=== PATIENT | female | born 1985 | race Caucasian/White ===

== ENCOUNTER 2016-05-06 04:45 | Inpatient (IN) | payer OTHER ==
[~2016-05-06] VITALS: Ht 152.4 cm; Wt 80.7 kg
[2016-05-06] MEDS ORDERED: VALACYCLOVIR500 M1 PO (08:56)
[2016-05-06] MEDS ORDERED: PRENATAL TABLE1 EAC2 PO (08:56)
[2016-05-06 09:24] LABS: ABSOLUTE BASOPHIL COUNT 0 /CUMM (0.0-0.2); ABSOLUTE EOSINOPHIL COUNT 0.1 /CUMM (0.0-0.7); ABSOLUTE GRANULOCYTE CT 11.5 /CUMM (1.4-6.5); ABSOLUTE MONOCYTE COUNT 0.8 /CUMM (0.10-0.60); BASOPHIL % 0.3 % (0.0-2.0); EOSINOPHIL % 0.4 % (0-5); GRANULOCYTE % 80.1 % (42.2-75.2); HEMATOCRIT 35.8 % (37-47); MEAN CORPUSCULAR HGB 29.7 PG (27.0-31.0); MEAN CORPUSCULAR HGB CONC 33.6 G/DL (33.0-37.0); MEAN CORPUSCULAR VOLUME 88.4 FL (81.0-99.0); MEAN PLATELET VOLUME 8.1 FL (7.4-10.4); PLATELET COUNT 249 /CUMM (130-400); RBC DISTRIBUTION WIDTH 15.7 % (11.5-14.5); RED BLOOD CELL CT 4.05 /CUMM (4.20-5.40); WHITE BLOOD CELL COUNT 14.4 /CUMM (4.8-10.8)
--- NOTE | 2016-05-06 09:41 | History & Physical ---
General Information and HPI MD Statement: I have seen and personally examined GRADY ZENDEJAS and documented this H&P. The patient is a 30 year old female at [40] weeks and [5] days gestation who presented with a chief complaint of [LABOR]. Source of Information: patient Exam Limitations: no limitations History of Present Illness: 30 YEAR OLD @ 40+5 WEEKS PRESENTS WITH LABOR PAIN. WAS SEEN ON CBC 2 DAYS PRIOR FOR R/O ROM. PATIENT HAD A NEG AMNISURE AND NEG STERILE SPEC EXAM (NEG FERN/POOL). CERVIX AT THAT TIME WAS 1-2CM. SHE NOW PRESENTS WITH WORSENING CONTRACTIONS OVERNIGHT. UPON ARRIVAL WAS 3-4 CM PER NURSING. ON MY EXAM AT 0800 SHE WAS 5CM/90/-1 SHE RELAYS H/O PERSISTENT DISCHARGE. AMNISURE ON ADMISSION NEG. UNREMARKABLE EXCEPT FOR PT HAS A REMOTE H/O HSV. SHE DENIES PRODROMAL SX AND HAS BEEN ON VALTREX. SHE HAS A REMOTE H/O ANXIETY BUT NO ISSUES THROUGHOUT . 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 EENTM: Reports: no symptoms. Cardiovascular: Reports: no symptoms. Respiratory: Reports: no symptoms. GI: Reports: no symptoms. Genitourinary: Reports: no symptoms. Musculoskeletal: Reports: no symptoms. Skin: Reports: no symptoms. Neurological/Psychological: Reports: no symptoms. Hematologic/Endocrine: Reports: no symptoms. Immunologic/Allergic: Reports: no symptoms. Exam & Diagnostic Data Last 24 Hrs of Vital Signs/I&O Intake & Output 05/06 1600 05/06 0800 05/06 0000 Intake Total Output Total Balance Patient 178 lb Weight Obstetric Exam Wgt Gained During : 40 Pelvimetry: N/A Dilation (cm): 5 Effacement (%): 90 Station: -1 Membranes: intact Fluid: unknown Fundal Height (cm): 40 Multiple Gestation? No Contractions: Q2MIN #1 - FHR Baseline: 130 Category: 1 Estimated Weight: 8LBS Presentation: VTX Patient for Induction? No Physical Exam General Appearance Alert, Oriented X3, Cooperative, No Acute Distress Skin No Rashes, No Breakdown, No Significant Lesion HEENT Atraumatic, PERRLA, EOMI Cardiovascular Regular Rate Lungs Clear to Auscultation, Normal Air Movement Abdomen Normal Bowel Sounds, Soft, No Tenderness, No Hepatospenomegaly, No Masses, GRAVID Neurological Normal Gait, Normal Speech, Strength at 5/5 X4 Ext Extremities No Clubbing, No Cyanosis Reproductive (FEMALE) Normal female genitalia Labs Blood Type & Rh: A pos Antibody Screen: Neg Hct/Hgb & Platelets #1: 12.4 37.2 307 Hct/Hgb & Platelets #2: 11.3 35.2 302. Rubella: imm VDRL #1: Neg VDRL #2: Neg HbsAg: Neg HIV #1: Neg HIV #2 Neg 1 Hr P Group B Strep: Neg Initial Ultrasound: IUP at 12 weeks Anatomy Ultrasound: 20.2 cisterna magna upper limits of normal, f/u stable anterior placenta, 3vc Genetic Testing: neg CF, neg Hgb elec, neg firs trimester screen, declines MSAFP Last 24 Hrs of Labs/Shawn: Laboratory Tests 05/06/16 0835: CBC w Diff Pending, WBC Pending, RBC Pending, Hgb Pending, Hct Pending, MCV Pending, MCH Pending, RDW Pending, Plt Count Pending, MPV Pending, PUBS MCHC Pending, Methadone Screen Pending, Barbiturate Screen Pending, Ur Phencyclidine Scrn Pending, Amphetamines Screen Pending, U Benzodiazepines Scrn Pending, Urine Cocaine Screen Pending, Urine Cannabis Screen Pending, Urine Color Pending, Urine Clarity Pending, Urine pH Pending, Ur Specific [place] Pending, Urine Protein Pending, Urine Ketones Pending, Urine Nitrite Pending, Urine Bilirubin Pending, Urine Urobilinogen Pending, Ur Leukocyte Esterase Pending, Ur Microscopic SEDIMENT EXAMINED, Urine RBC Pending, Urine Hemoglobin Pending, Urine Glucose Pending Assessment/Plan Assessment/Plan: 30 year old @ at 40+5 weeks. Active labor. Uncomplicated hx. FHR tracing reassuring. Anticipate . epidural/pitocin/AROM pr. As Ranked By This Provider Problem List: 1. Core Measures/Miscellaneous Moore Catheter Date In: 05/06/16 Venous Thromboembolism VTE Risk Factors: / VTE Contraindications: No Contraindications VTE Prophylaxis Ordered Inpt: Early Ambulation VTE Diagnosis: No Beta Edna Is Beta Edna a Home Med? No Antibiotics Is Patient on Antibiotics? No Attending MD Review Statement Attending Statement Attending MD Statement: examined this patient, discussed with family, discussed w/nursing
--- NOTE | 2016-05-06 10:56 | PN- OBGYN ---
Surgical Brief Attending Note Brief Attending Note: Doing well. No complaints. Tolerating pain. Was just in the jacuzzi. VSSAF FHR: 130s, +cat 1 toco: q 2-3 min cvx: 5/90/-1, BBOW AROM thin [facility] Laboratory Tests 05/06/16 0835: CBC w Diff NO MAN DIFF REQ, RBC 4.05 L, MCV 88.4, MCH 29.7, RDW 15.7 H, MPV 8.1, Gran % 80.1 H, Lymphocytes % 13.6 L, Monocytes % 5.6, Eosinophils % 0.4, Basophils % 0.3, Absolute Granulocytes 11.5 H, Absolute Lymphocytes 2.0, Absolute Monocytes 0.8 H, Absolute Eosinophils 0.1, Absolute Basophils 0, PUBS MCHC 33.6, Urine Opiates Screen < 100.00, Methadone Screen < 40, Barbiturate Screen < 60, Ur Phencyclidine Scrn < 6.00, Amphetamines Screen < 100, U Benzodiazepines Scrn < 85, Urine Cocaine Screen < 50, Urine Cannabis Screen 51.10 H, Urine Color YEL, Urine Clarity CLEAR, Urine pH 6.5, Ur Specific [place] 1.010, Urine Protein NEG, Urine Ketones NEG, Urine Nitrite NEG, Urine Bilirubin NEG, Urine Urobilinogen 0.2, Ur Leukocyte Esterase MOD H, Ur Microscopic SEDIMENT EXAMINED, Urine RBC 1-3, Urine WBC 10-15 H, Ur Epithelial Cells MOD H, Urine Hemoglobin MOD H, Urine Glucose NEG a/p 40+5. Active labor. no cervical change. Amniotomy performed. Thin [facility]. peds notified. anticipate .
--- NOTE | 2016-05-06 13:23 | PN- OBGYN ---
Surgical Brief Attending Note Brief Attending Note: COMFORTABLE WITH EPIDURAL. NO COMPLAINTS. VSSAF [id number] CAT 1 TOCO Q3-5MIN CVX 5-6/80/-1 A/P 40+5. ACTIVE LABOR. WILL REASSES IN 1-2 HOURS, IF NO SIGNIFICANT CERVICAL CHANGE OR IF LESS FREQUENCY OF CONTACTIONS, CONSIDER PITOCIN.
--- NOTE | 2016-05-06 15:50 | PN- OBGYN ---
Surgical Brief Attending Note Brief Attending Note: Pt comfortable . no complaints. FHTs:130s-140s cat 1 toco: q3-4 cvx: 6/80/-1 Laboratory Tests 05/06/16 0835: CBC w Diff NO MAN DIFF REQ, RBC 4.05 L, MCV 88.4, MCH 29.7, RDW 15.7 H, MPV 8.1, Gran % 80.1 H, Lymphocytes % 13.6 L, Monocytes % 5.6, Eosinophils % 0.4, Basophils % 0.3, Absolute Granulocytes 11.5 H, Absolute Lymphocytes 2.0, Absolute Monocytes 0.8 H, Absolute Eosinophils 0.1, Absolute Basophils 0, PUBS MCHC 33.6, Urine Opiates Screen < 100.00, Methadone Screen < 40, Barbiturate Screen < 60, Ur Phencyclidine Scrn < 6.00, Amphetamines Screen < 100, U Benzodiazepines Scrn < 85, Urine Cocaine Screen < 50, Urine Cannabis Screen 51.10 H, Urine Color YEL, Urine Clarity CLEAR, Urine pH 6.5, Ur Specific [place] 1.010, Urine Protein NEG, Urine Ketones NEG, Urine Nitrite NEG, Urine Bilirubin NEG, Urine Urobilinogen 0.2, Ur Leukocyte Esterase MOD H, Ur Microscopic SEDIMENT EXAMINED, Urine RBC 1-3, Urine WBC 10-15 H, Ur Epithelial Cells MOD H, Urine Hemoglobin MOD H, Urine Glucose NEG Microbiology 05/06 1350 URINE ROUT: Urine Culture - RECD a/p 30 year old @ 40+5. active labor. no significant cervical change despite some augmentation. IUPC placed which confirmed about 150mVUs or less. will continue augmentation. Pt informed +THC on Utox performed for remote hx. Pt relays intermittent use during . "last use the other day". She however desired to nurse. Discussed perhaps pumping and dumping until neg UTOx so that can still stimulate breast milk. Discussed use of formula. She states remorse. Pt informed that if +, DCF is notified. She states that would like to do the best thing for her baby and will defer from THC in future.
--- NOTE | 2016-05-06 19:41 | PN- OBGYN ---
Surgical Brief Attending Note Brief Attending Note: PT RECENTLY REBOLUSES BY ANESTHESIA. HAS RECTAL PRESSURE. EXAMINED BY RN 2 HOURS PRIOR AND WAS 6 CM. PT HAD RECEIVED UP TO 8MU/MIN AND ADEQUATE LABOR X 3 HOURS. FHR TRACING REASSURING. NOW TEMP OF 100.5. ON MY EXAM, CVX 6CM/90/-1 STATION. I RECOMMENDED DELIVERY FOR ARREST OF DILATION/ARREST OF DESCENT. PT COUNSELED ON INTRAOPERATIVE/POSTOPERATIVE EXPECTATIONS . RISK OF PROCEDURE REVIEWED INCLUDING RISK OF BLEEDING, INFECTION, INJURY TO OTHER ORGANS, TTN, INJURY TO FETUS, NEED FOR ADDITIONAL PROCEDURES SHOULD COMPLICATION OCCUR. QUESTIONS ANSWERED AND DESIRES TO PROCEED.
--- NOTE | 2016-05-06 19:55 | Operative Report ---
See Addendum Operative/Inv Procedure Report Surgery Date: 05/06/16 Name of Procedure: PRIMARY LTCS Pre-Operative Diagnosis: ARREST OF DILATION/DESCENT AT 6CM THIN MEC REMOTE H/O HSV Post-Operative Diagnosis: SAME Estimated Blood Loss: 700NL Surgeon/Senior Technical Specialist: MARYJO BRANDON DO ASST: COLUMBA FRANKLIN MD Anesthesia: block (EPIDURAL) IV Fluids: 800 mL crystalloid Urine Output: 300 mL Drains: WAY CATHETER Specimens: PLACENTA Complications: NONE Condition: GOOD Operative Indication: This patient is a 30-year-old 1 para 0 who presented early in the morning on 05/06/2016. She presented in early labor and was initially 1 cm and admitted upon cervical change to 3 cm. Operative/Procedure Note Note: PATIENT ADMINSTERED EPIDURAL BOLUS PRIOR TO ENTERING THE OR. THE PATIENT WAS TAKEN TO THE OPERATING ROOM WHERE ANESTHESIA WAS FURTHER OBTAINED. PATIENT WAS THEN PREPARED AND DRAPED IN THE USUAL STERILE FASHION. PFANNENSTIEL SKIN INCISION WAS MADE WITH SCALPEL AND CARRIED DOWN TO THE FASCIA WITH THE SCALPEL. FASCIA WAS INCISED AND EXTENDED BILATERALLY WITH BLUNT DISSECTION. RECTUS MUSCLES WERE DISSECTED OFF WITH BLUNT DISSECTION . PERITONEUM WAS IDENTIFIED AND ENTERED. INCISION WAS EXTENDED SUPERIORLY AND INFERIORLY WITH GOOD VISUALIZATION OF THE BLADDER. BLADDER BLADE WAS INSERTED. VESICOUTERINE PERITONEUM WAS IDENTIFIED AND ENTERED SHARPLY. INCISION EXTENDED AND BLADDER FLAP CREATED. BLADDER BLADE REINSERTED. LOWER UTERINE SEGMENT WAS INCISED IN A TRANSVERSE FASHION. HEAD SHOULDERS AND BODY DELIVERED WITHOUT DIFFICULTY. CORD CLAMPED AND CUT AND INFANT HANDED OFF TO PEDIATRICS. PLACENTA DELIVERED WITH GENTLE TRACTION. Uterus was then exteriorized and cleared of all clots and debris. Mild atony of the lower uterine segment was encountered. Good uterine tone was obtained with 10 units of Pitocin administered intrauterine an additional dose of Methergine 1 was ordered. Uterine incision was reapproximated with 0 Vicryl running locking fashion. A second imbricating suture of 0 Vicryl was placed. Good hemostasis was noted. Uterus was inspected and noted to be within normal limits. She had normal-appearing bilateral ovaries and bilateral ovaries. Uterus was irrigated posteriorly and the uterus was then replaced back into the abdomen. Gutters were cleared of all clots and debris and uterine incision was reevaluated and noted to be hemostatic. Peritoneum was reapproximated. Rectus muscles were reapproximated inferiorly. Rectus muscles were noted to be hemostatic. Fascia was repassed with 0 Vicryl in a running fashion. The tissues were irrigated and reapproximated 3-0 Polysorb. Skin was closed with 4 0 Biosyn on a Ramón needle. All sponge, lap counts and needle counts were correct 2 the patient was taken to recovery area in stable condition. Findings: 9 lbs. 12 oz. male infant with scores of 9, 9, 9 delivered at 2013 on 05.06.2016. Normal-appearing uterus, bilateral ovaries, bilateral fallopian tubes, thin meconium. [facility]
[2016-05-07 09:20] LABS: ABSOLUTE BASOPHIL COUNT 0 /CUMM (0.0-0.2); ABSOLUTE EOSINOPHIL COUNT 0 /CUMM (0.0-0.7); ABSOLUTE LYMPH COUNT 1.3 /CUMM (1.2-3.4); BASOPHIL % 0.1 % (0.0-2.0); EOSINOPHIL % 0.1 % (0-5); GRANULOCYTE % 87.2 % (42.2-75.2); HEMATOCRIT 31.2 % (37-47); MEAN CORPUSCULAR HGB 30.1 PG (27.0-31.0); MEAN CORPUSCULAR HGB CONC 34.1 G/DL (33.0-37.0); MEAN CORPUSCULAR VOLUME 88.2 FL (81.0-99.0); MEAN PLATELET VOLUME 7.9 FL (7.4-10.4); PLATELET COUNT 238 /CUMM (130-400); RBC DISTRIBUTION WIDTH 15.8 % (11.5-14.5); RED BLOOD CELL CT 3.54 /CUMM (4.20-5.40); WHITE BLOOD CELL COUNT 18.4 /CUMM (4.8-10.8)
--- NOTE | 2016-05-07 11:25 | PN- OBGYN ---
Surgical Brief Attending Note Brief Attending Note: POD#1 pt is sitting in chair, no complaints, tolerate diet, vuong in place, clear urine, flatus(-) PE: VSS CV RRR lungs CTA b/l Abdomen: soft, nontender, uterus firm, fundus below umbilicus. incision D/C/I Ext: DCT (-) A/P: 30yo, s/p PLTCS, POD#1 1. encourage ambulation 2. will d/c vuong , void trial 3. pain management as needed 4.RT PP care
--- NOTE | 2016-05-08 11:39 | PN- Post Delivery/GYN ---
Subjective Subjective: feeling well passing gas Review of Systems Constitutional: Reports: no symptoms. Denies: chills, fever. EENTM: Denies: blurred vision, double vision, visual changes. Cardiovascular: Denies: chest pain. Respiratory: Denies: short of breath. Gastrointestinal: Denies: diarrhea, nausea, vomiting. Neurological/Psychological: Denies: anxiety, depressed. Objective Last 24 Hrs of Vital Signs/I&O vss Physical Exam General Appearance Alert, Oriented X3, Cooperative, No Acute Distress Cardiovascular Regular Rate Lungs Clear to Auscultation Abdomen Soft Neurological Normal Tone Pelvic (FEMALE) lochia serosanganous Current Medications: Current Medications Sig/Zeinab Start time Last Medication Dose Route Stop Time Status Admin Acetaminophen 1,000 MG .STK-MED ONE 05/07 1523 DC IV 05/07 1524 Acetaminophen 1,000 MG Q6P PRN 05/07 0100 05/07 N/A 1 UNIT IV 0100 Acetaminophen 650 MG Q4P PRN 05/06 2145 AC PO Butorphanol Tartrate 1 MG Q4P PRN 05/06 0830 AC IV Butorphanol Tartrate 1 MG Q4P PRN 05/06 0830 AC IM Diphenhydramine HCl 25 MG Q6P PRN 05/07 0100 AC IV Docusate Sodium 100 MG BID 05/07 1000 AC 05/08 PO 0750 Hydroxyzine HCl 50 MG AT BEDTIME NEED.. 05/06 2145 AC PO Ibuprofen 800 MG .STK-MED ONE 05/07 2239 DC PO 05/07 2240 Ibuprofen 800 MG .STK-MED ONE 05/07 1548 DC PO 05/07 1549 Ibuprofen 800 MG Q6P PRN 05/06 2145 AC 05/08 PO 0750 Ketorolac 30 MG Q6H 05/06 2145 DC 05/07 Tromethamine IV 05/07 1546 0953 Lactated Ringer's 1,000 ML Q8H 05/06 1945 DC 05/07 IV 0308 Lactated Ringer's 1,000 ML Q8H 05/06 0830 DC 05/06 IV 1746 Metoclopramide HCl 10 MG Q6P PRN 05/07 0100 AC IV Naloxone HCl 0.2 MG DAILY NEEDED PRN 05/07 0100 AC IV Oxycodone/ 1 TAB Q4P PRN 05/07 1345 AC 05/08 Acetaminophen PO 0812 Oxycodone/ 2 TAB Q4P PRN 05/07 1345 AC Acetaminophen PO Oxycodone/ 1 TAB Q3P PRN 05/06 2145 DC 05/07 Acetaminophen PO 1326 Oxytocin 30 UNITS PER PROTOCL 05/06 1345 AC 05/06 Lactated Ringer's 500 ML IV 1359 Senna 374 MG AT BEDTIME NEED.. 05/06 2145 DC PO 05/07 2146 Simethicone 80 MG Q6 PRN 05/07 1202 AC PO Simethicone 80 MG Q6 05/07 0600 DC 05/07 PO 0659 Assessment/Plan Assessment/Plan POD #2 vss afebrile plan ambulate Problem List: 1. Attending MD Review Statement Attending Statement Attending MD Statement: examined this patient, discussed with family, discussed with nursing
[2016-05-09] MEDS ORDERED: PERCOCET 5-3251 EACH PO (09:16)
[2016-05-09] MEDS ORDERED: IBUPROFEN800 M1 PO (09:16)
--- NOTE | 2016-05-09 11:59 | PN- Post Delivery/GYN ---
Subjective Subjective: Patient is ready for discharge home today Review of Systems: Currently negative cardiac pulmonary GI complaints Objective Last 24 Hrs of Vital Signs/I&O Temp 98.8 pulse 82 respirations 16 blood pressure 122/78 pulse ox 98% room air Physical Exam General Appearance Alert, Oriented X3, Cooperative, No Acute Distress Skin No Rashes, No Breakdown, No Significant Lesion Cardiovascular Regular Rate Lungs Normal Air Movement Abdomen Normal Bowel Sounds, Soft, No Tenderness, No Hepatospenomegaly, fundus is firm at the pubic fingerbreadths below the umbilicus nontender incision itself is clean dry and intact without erythema or induration or drainage Neurological Normal Gait, Normal Speech Extremities No Clubbing, No Cyanosis, No Tenderness/Swelling Reproductive (FEMALE) Normal female genitalia, average lochia Current Medications: Current Medications Sig/Zeinab Start time Last Medication Dose Route Stop Time Status Admin Acetaminophen 1,000 MG Q6P PRN 05/07 0100 AC 05/07 N/A 1 UNIT IV 0100 Acetaminophen 650 MG Q4P PRN 05/06 2145 AC PO Butorphanol Tartrate 1 MG Q4P PRN 05/06 0830 AC IV Butorphanol Tartrate 1 MG Q4P PRN 05/06 0830 AC IM Diphenhydramine HCl 25 MG Q6P PRN 05/07 0100 AC IV Docusate Sodium 100 MG .STK-MED ONE 05/08 2100 DC PO 05/08 2101 Docusate Sodium 100 MG BID 05/07 1000 AC 05/09 PO 0837 Hydroxyzine HCl 50 MG AT BEDTIME NEED.. 05/06 214 AC PO Ibuprofen 800 MG .STK-MED ONE 05/09 0342 DC PO 05/09 0343 Ibuprofen 800 MG .STK-MED ONE 05/08 2115 DC PO 05/08 2116 Ibuprofen 800 MG .STK-MED ONE 05/08 1401 DC PO 05/08 1402 Ibuprofen 800 MG Q6P PRN 05/06 2145 AC 05/09 PO 0953 Metoclopramide HCl 10 MG Q6P PRN 05/07 0100 AC IV Naloxone HCl 0.2 MG DAILY NEEDED PRN 05/07 0100 AC IV Oxycodone/ 1 TAB Q4P PRN 05/07 1345 AC 05/09 Acetaminophen PO 0837 Oxycodone/ 2 TAB Q4P PRN 05/07 1345 AC Acetaminophen PO Oxytocin 30 UNITS PER PROTOCL 05/06 1345 AC 05/06 Lactated Ringer's 500 ML IV 1359 Simethicone 80 MG Q6 PRN 05/07 1202 AC PO Assessment/Plan Assessment/Plan Stable postop day #3. Patient is doing well from her delivery. Her pain is controlled with oral pain medications, she's remained afebrile, she's had full return of GI function. Patient will be discharged home today Problem List: 1. Arrest of dilation, delivered, current hospitalization 2. delivery delivered 3. Macrosomia Attending MD Review Statement Attending Statement Attending MD Statement: examined this patient, discussed with family, discussed with nursing Attending Assessment/Plan: Mechelle Cho MD
--- NOTE | 2016-05-15 11:23 | Discharge Summary ---
Visit Information Visit Dates Admission Date: 05/06/16 Discharge Date: 05/09/16 Hospital Course Course Attending Physician: MARYJO BRANDON DO Primary Care Physician: PATIENT HAS NO PRIMARY CARE DR Hospital Course: This patient is a 30-year-old 1 para 0 at 40 weeks and 5 days who presented early in the morning on 05/06/2016. Upon initial evaluation she was in early labor 1 cm. After period of observation Shan sure cervix to 3 cm and was admitted. Upon my assessment she was found to be 5 cm 90% effaced -1 station at 8:00 in the morning. She contracted throughout the day and when later examined she was still found to be 5-6 cm at that time amniotomy was performed and thin meconium was noted. Pediatrics was notified. After period of observation she continued to be 5-6 cm and Pitocin was ordered. She was reevaluated and no cervical change was further noted at that time. IUPC was ordered and inadequate labor was noted. Pitocin was managed accordingly in order to obtain adequate labor. After 3 hours of adequate labor she did not demonstrate any cervical change she remained 5-6 cm. The patient was counseled on delivery for arrest of dilation at 6 cm. Additionally fetus did not descend past -1 station. She was counseled on risks, benefits, alternatives of delivery including risk of bleeding, infection, injury to the organs or fetus, need for additional procedure should competition occur. She stated verbal understanding of all the above and desired to proceed. Her surgery was uncomplicated. She delivered a 9 lbs. 12 oz. male infant with scores of 9 , 9, 9 at 2014 on the retrieval 2016. Her uterus was slightly atonic after delivery and Methergine 1 was ordered. Good tone and good hemostasis was noted. Her postoperative course was similarly uncomplicated. She was discharged home on postoperative day #3 in good condition. She was a bleeding, voiding, tolerating pain and by mouth. Her lochia was appropriate. Discharge precautions were advised. Complications: None Allergies: Coded Allergies: No Known Allergies (05/06/16) Significant Procedures: Primary low transverse section Disposition Summary Disposition Principal Diagnosis: Term , delivered Additional Diagnosis: Arrest of dilation, arrest of descent, macrosomic infant Discharge Disposition: home or self care Discharge Instructions General Discharge Information Code Status: Full Code Patient's Diet: Regular Patient's Activity: Pelvic rest and no heavy lifting Follow-Up Instructions/Appts: [facility] 2 weeks and 6 weeks . Follow-up for severe persistent pain, fever greater than 101, heavy vaginal bleeding Medications at Discharge Discharge Medications: Stop taking the following medications: Valacyclovir HCl (Valacyclovir) 500 MG TABLET ORAL DAILY Continue taking these medications: Vit No.130/Iron/FA ( Tablet) 27 MG IRON-800 MCG TABLET 1 Tablet ORAL DAILY Start taking the following new medications: Ibuprofen (Ibuprofen) 800 MG TABLET 800 Milligram ORAL EVERY SIX HOURS NEEDED as needed for UTERINE CRAMPING Qty = 60 Refills = 6 Comments: Last Taken:05/09/16 Time:0957 Oxycodone HCl/Acetaminophen (Percocet 5-325 MG Tablet) 5 MG-325 MG TABLET 1-2 Tablet ORAL EVERY 4 HOURS NEEDED as needed for PAIN SCALE 4- 10 Qty = 30 No Refills Comments: Last Taken: 05/09/16 Time: 0837 Copies To: MARYJO BRANDON DO, MD Review Statement Documenting Attending: MARYJO BRANDON DO
== END 2016-05-09 13:00 | DRG 540 ==
LOC: CBCO 04:45 → GNO 08:23
PROVIDERS: ADMIT Obstetrics & Gynecology
PROC: 10D00Z1 Extraction of Products of Conception, Low, Open Approach (ICD-10-PCS; principal; 2016-05-06)
DX: O62.1 Secondary uterine inertia (principal); Z3A.40 40 weeks gestation of pregnancy; Z37.0 Single live birth; O36.63X0 Maternal care for excessive fetal growth, third trimester, not applicable or unspecified
CPT/HCPCS: GNOP; GNOS; 36415; 80307; 81001; 84112; 87086; 88307; G0463; J0131; J0690; J1885; J2210; J7120